=== PATIENT | male | born 1950 | race Caucasian/White ===

== ENCOUNTER 2019-01-12 15:18 | Observation (INO) ==
[2019-01-12] MEDS ORDERED: Morphine Sulfate Immed Rel 15 MG TABLET PO STA ×2 (15:59→19:26)
[2019-01-12] MEDS ORDERED: Gadolinium Contrast Agent (WT Based) IV PRN (16:00)
[2019-01-12 16:27] LABS: Basophils # 0.1 K/mcL (0.0-0.2); Eosinophils # 0.3 K/mcL (0.0-0.6); Eosinophils % 3.5 %; Hematocrit 39.2 % (37.5-50.1); Hemoglobin 13.4 g/dL (12.9-16.9); Immature Granulocytes % 1.5 % (0-4); Lymphocytes # 1.6 K/mcL (0.6-4.6); Lymphocytes % 22.3 %; Mean Corpuscular HGB Conc 34.2 g/dL (31.6-35.5); Mean Corpuscular Hemoglobin 31.8 pg (28.0-33.3); Mean Corpuscular Volume 92.9 fL (83.0-100.0); Mean Platelet Volume 8.6 fL (9.4-12.4); Monocytes # 0.7 K/mcL (0.0-1.3); Monocytes % 9.6 %; Neutrophils # 4.5 K/mcL (1.6-8.9); Platelet Count 267 K/mcL (140-400); Red Blood Count 4.22 M/mcL (4.19-5.50); Red Cell Distribution Width 12.5 % (11.5-14.5); Segmented Neutrophils % 62.1 %; White Blood Count 7.2 K/mcL (4.3-11.1)
[2019-01-12 16:56] LABS: BUN/Creatinine Ratio 36 (6-26); Blood Urea Nitrogen 32 mg/dL (8-23); C-Reactive Protein < 5 mg/L (Less than 10); Calcium 10.4 mg/dL (8.6-10.3); Carbon Dioxide 25 mEq/L (23-29); Chloride 98 mEq/L (98-107); Glucose 162 mg/dL (70-105); Osmolality,Calculated 292 (280-300); Potassium 3.8 mEq/L (3.5-5.1); Sodium 136 mEq/L (136-145); eGFR For African Americans > 60 (> 60); eGFR For Non-African Americans > 60 (> 60)
[2019-01-12] MEDS ORDERED: Ketorolac 30 MG/ML VIAL IVP ONE (20:05)
[2019-01-12] MEDS ORDERED: *HR* FentaNYL (PF) 100 MCG/2 ML VIAL IVP ONE (20:31)
[2019-01-12] MEDS: Gabapentin 300 MG CAPSULE PO SCH (21:10)
[2019-01-12] MEDS ORDERED: traMADol 50 MG TABLET PO PRN (22:18)
[2019-01-12] MEDS ORDERED: Ondansetron 4 MG/2 ML VIAL IVP PRN (22:18)
[2019-01-12] MEDS ORDERED: Naloxone 0.4 MG/ML INJ IVP PRN (22:18)
[2019-01-12] MEDS ORDERED: D5% in Water 1,000 ML IVC PRN (22:21)
[2019-01-12] MEDS ORDERED: Dextrose Gel 15 GM/37.5 ML TUBE PO PRN ×2 (22:21)
[2019-01-12] MEDS ORDERED: *HR* Dextrose 50 % in Water (Syg) 50 ML SYRINGE IVP PRN (22:21)
[2019-01-12] MEDS ORDERED: tiZANidine 4 MG TABLET PO PRN (22:22)
[2019-01-12] MEDS ORDERED: *HR* HYDROmorphone 2 MG TABLET PO PRN (22:28)
[2019-01-12] MEDS: Insulin LISPRO 300 UNITS/3 ML VIAL SQ SCH (22:48)
[2019-01-12] MEDS: *HR* OxyCODONE Immed Rel 5 MG TABLET PO PRN (23:45)
[2019-01-13] MEDS: Acetaminophen 325 MG TABLET PO PRN (02:55)
[2019-01-13 03:04] LABS: Hematocrit 37.2 % (37.5-50.1); Hemoglobin 12.4 g/dL (12.9-16.9); Mean Corpuscular HGB Conc 33.3 g/dL (31.6-35.5); Mean Corpuscular Volume 96.1 fL (83.0-100.0); Mean Platelet Volume 8.7 fL (9.4-12.4); Platelet Count 238 K/mcL (140-400); Red Blood Count 3.87 M/mcL (4.19-5.50); Red Cell Distribution Width 12.4 % (11.5-14.5); White Blood Count 7.1 K/mcL (4.3-11.1)
[2019-01-13 03:25] LABS: BUN/Creatinine Ratio 31 (6-26); Blood Urea Nitrogen 29 mg/dL (8-23); Calcium 9.4 mg/dL (8.6-10.3); Carbon Dioxide 25 mEq/L (23-29); Chloride 100 mEq/L (98-107); Chol/HDL Ratio 3.2 (0-4.9); Cholesterol 142 mg/dL (< 200); Glucose 151 mg/dL (70-105); HDL Cholesterol 44 mg/dL (40-59); LDL Cholesterol,Calculated 78 mg/dL (0-99); Magnesium 1.8 mg/dL (1.6-2.6); Osmolality,Calculated 289 (280-300); Potassium 3.9 mEq/L (3.5-5.1); Sodium 135 mEq/L (136-145); Triglycerides 98 mg/dL (< 150); eGFR For African Americans > 60 (> 60); eGFR For Non-African Americans > 60 (> 60)
[2019-01-13] MEDS: *HR* Heparin 5,000 UNIT/ML VIAL SQ SCH ×3 (05:50→20:11)
[2019-01-13] MEDS: Insulin LISPRO 300 UNITS/3 ML VIAL SQ SCH ×4 (08:26→19:38)
[2019-01-13] MEDS: Aspirin Enteric Coated 81 MG Tablet PO SCH (08:26)
[2019-01-13] MEDS: Gabapentin 300 MG CAPSULE PO SCH ×3 (08:27→20:10)
[2019-01-13] MEDS: Linaclotide [Linzess] 72 MCG PO SCH (08:27)
[2019-01-13] MEDS: *HR* OxyCODONE Immed Rel 5 MG TABLET PO PRN ×3 (08:27→17:26)
[2019-01-13 09:24] LABS: Estimated Average Glucose 160 mg/dl
[2019-01-14] MEDS: *HR* OxyCODONE Immed Rel 5 MG TABLET PO PRN ×4 (00:41→21:22)
[2019-01-14 04:41] LABS: Hemoglobin 12.6 g/dL (12.9-16.9); Mean Corpuscular HGB Conc 33.2 g/dL (31.6-35.5); Mean Corpuscular Hemoglobin 32.3 pg (28.0-33.3); Mean Corpuscular Volume 97.4 fL (83.0-100.0); Mean Platelet Volume 8.7 fL (9.4-12.4); Platelet Count 227 K/mcL (140-400); Red Cell Distribution Width 12.3 % (11.5-14.5); White Blood Count 5.5 K/mcL (4.3-11.1)
[2019-01-14 04:57] LABS: BUN/Creatinine Ratio 26 (6-26); Blood Urea Nitrogen 20 mg/dL (8-23); Calcium 9.5 mg/dL (8.6-10.3); Carbon Dioxide 28 mEq/L (23-29); Chloride 102 mEq/L (98-107); Glucose 127 mg/dL (70-105); Osmolality,Calculated 286 (280-300); Potassium 4.3 mEq/L (3.5-5.1); Sodium 136 mEq/L (136-145); eGFR For African Americans > 60 (> 60); eGFR For Non-African Americans > 60 (> 60)
[2019-01-14] MEDS: *HR* Heparin 5,000 UNIT/ML VIAL SQ SCH ×3 (05:48→21:23)
[2019-01-14] MEDS: Insulin LISPRO 300 UNITS/3 ML VIAL SQ SCH ×4 (07:51→21:19)
[2019-01-14] MEDS: Gabapentin 300 MG CAPSULE PO SCH ×3 (09:11→21:23)
[2019-01-14] MEDS: Aspirin Enteric Coated 81 MG Tablet PO SCH (09:12)
[2019-01-14] MEDS: Linaclotide [Linzess] 72 MCG PO SCH (09:15)
[2019-01-14] MEDS: Acetaminophen 325 MG TABLET PO PRN ×2 (12:27→23:47)
[2019-01-15 04:00] LABS: Hematocrit 37.8 % (37.5-50.1); Hemoglobin 12.8 g/dL (12.9-16.9); Mean Corpuscular HGB Conc 33.9 g/dL (31.6-35.5); Mean Corpuscular Hemoglobin 32.2 pg (28.0-33.3); Mean Platelet Volume 8.7 fL (9.4-12.4); Platelet Count 218 K/mcL (140-400); Red Blood Count 3.98 M/mcL (4.19-5.50); Red Cell Distribution Width 12.2 % (11.5-14.5); White Blood Count 5.7 K/mcL (4.3-11.1)
[2019-01-15 04:17] LABS: BUN/Creatinine Ratio 26 (6-26); Blood Urea Nitrogen 21 mg/dL (8-23); Carbon Dioxide 28 mEq/L (23-29); Chloride 99 mEq/L (98-107); Glucose 133 mg/dL (70-105); Osmolality,Calculated 287 (280-300); Potassium 3.9 mEq/L (3.5-5.1); Sodium 136 mEq/L (136-145); eGFR For African Americans > 60 (> 60); eGFR For Non-African Americans > 60 (> 60)
[2019-01-15] MEDS: *HR* OxyCODONE Immed Rel 5 MG TABLET PO PRN ×2 (06:11→14:45)
[2019-01-15] MEDS: *HR* Heparin 5,000 UNIT/ML VIAL SQ SCH ×2 (06:11→13:45)
[2019-01-15] MEDS: Insulin LISPRO 300 UNITS/3 ML VIAL SQ SCH ×2 (07:35→11:48)
[2019-01-15] MEDS: Gabapentin 300 MG CAPSULE PO SCH ×2 (07:36→13:45)
[2019-01-15] MEDS: Aspirin Enteric Coated 81 MG Tablet PO SCH (07:37)
[2019-01-15] MEDS: Linaclotide [Linzess] 72 MCG PO SCH (07:38)
[2019-01-15 11:52] VITALS: BP 127/78
[2019-01-15] MEDS: Acetaminophen 325 MG TABLET PO PRN (13:44)
== END 2019-01-15 15:36 | disposition home health service (06) ==
LOC: EMEROOARM 15:18 → 3BNU 15:18 → SUATTDRO 21:20 → 3BNU 21:58
PROVIDERS: ADMIT Internal Medicine; ATTEND Family Medicine

== ENCOUNTER 2019-01-22 11:09 | Observation (INO) ==
[2019-01-22] MEDS ORDERED: Ondansetron 4 MG/2 ML VIAL IVP ONE (12:23)
[2019-01-22] MEDS ORDERED: *HR* FentaNYL (PF) 100 MCG/2 ML VIAL IVP ONE (12:23)
[2019-01-22 13:22] LABS: Bilirubin,Urine Negative (Negative); Blood,Urine Negative (Negative); Clarity,Urine Clear (Clear); Color,Urine Yellow (Yellow); Glucose,Urine (UA) Normal (Normal); Ketones,Urine Negative (Negative); Leukocyte Esterase,Urine Negative (Negative); Nitrite,Urine Negative (Negative); Protein,Urine Negative (Neg-Trace); Specific Gravity,Urine > 1.030 (1.010-1.025); Urobilinogen,Urine Normal (Normal)
[2019-01-22 14:23] LABS: Hematocrit 37.4 % (37.5-50.1); Hemoglobin 12.9 g/dL (12.9-16.9); Mean Corpuscular HGB Conc 34.5 g/dL (31.6-35.5); Mean Corpuscular Hemoglobin 31.9 pg (28.0-33.3); Mean Corpuscular Volume 92.3 fL (83.0-100.0); Mean Platelet Volume 8.8 fL (9.4-12.4); Platelet Count 231 K/mcL (140-400); Red Blood Count 4.05 M/mcL (4.19-5.50); Red Cell Distribution Width 12.2 % (11.5-14.5); White Blood Count 5.2 K/mcL (4.3-11.1)
[2019-01-22 15:05] LABS: Alanine Aminotransferase 18 Units/L (7-52); Albumin 4.2 g/dL (3.5-5.7); Albumin/Globulin Ratio 1.4 (1.1-2.2); Alkaline Phosphatase 123 Units/L (34-104); Aspartate Amino Transferase 20 Units/L (13-39); BUN/Creatinine Ratio 31 (6-26); Bilirubin,Direct 0.1 mg/dL (0.0-0.2); Bilirubin,Indirect 0.2 mg/dL (0.0-1.2); Bilirubin,Total 0.3 mg/dL (0.3-1.0); Blood Urea Nitrogen 27 mg/dL (8-23); Carbon Dioxide 24 mEq/L (23-29); Chloride 100 mEq/L (98-107); Glucose 101 mg/dL (70-105); Lipase 42 Units/L (11-82); Osmolality,Calculated 285 (280-300); Potassium 4.7 mEq/L (3.5-5.1); Sodium 135 mEq/L (136-145); Total Protein 7.2 g/dL (6.4-8.9); eGFR For African Americans > 60 (> 60); eGFR For Non-African Americans > 60 (> 60)
[2019-01-22] MEDS ORDERED: Naloxone 0.4 MG/ML INJ IVP PRN (15:45)
[2019-01-22] MEDS ORDERED: D5% in Water 1,000 ML IVC PRN (16:05)
[2019-01-22] MEDS ORDERED: Dextrose Gel 15 GM/37.5 ML TUBE PO PRN ×2 (16:05)
[2019-01-22] MEDS ORDERED: *HR* Dextrose 50 % in Water (Syg) 50 ML SYRINGE IVP PRN (16:05)
[2019-01-22] MEDS: Insulin LISPRO 300 UNITS/3 ML VIAL SQ SCH (17:47)
[2019-01-22] MEDS: *HR* Heparin 5,000 UNIT/ML VIAL SQ SCH (17:48)
[2019-01-22] MEDS: Morphine PCA 30 MG/ 30 ML 30 ML PCA.VIAL IVC PRN (17:54)
[2019-01-22] MEDS ORDERED: 0.9 % Sodium Chloride 1,000 ML ONE (18:06)
[2019-01-22] MEDS: 0.9 % Sodium Chloride 1,000 ML IVC SCH (20:14)
[2019-01-23 05:21] LABS: White Blood Count 4.4 K/mcL (4.3-11.1)
[2019-01-23 05:22] LABS: Basophils % 0.7 %; Eosinophils # 0.2 K/mcL (0.0-0.6); Eosinophils % 4.8 %; Hematocrit 37.7 % (37.5-50.1); Hemoglobin 13.1 g/dL (12.9-16.9); Immature Granulocytes % 0.9 % (0-4); Lymphocytes # 1.4 K/mcL (0.6-4.6); Lymphocytes % 31.1 %; Mean Corpuscular HGB Conc 34.7 g/dL (31.6-35.5); Mean Corpuscular Hemoglobin 32.3 pg (28.0-33.3); Mean Corpuscular Volume 92.9 fL (83.0-100.0); Mean Platelet Volume 8.7 fL (9.4-12.4); Monocytes # 0.6 K/mcL (0.0-1.3); Monocytes % 12.9 %; Neutrophils # 2.2 K/mcL (1.6-8.9); Platelet Count 228 K/mcL (140-400); Red Blood Count 4.06 M/mcL (4.19-5.50); Red Cell Distribution Width 12.4 % (11.5-14.5); Segmented Neutrophils % 49.6 %
[2019-01-23 05:39] LABS: BUN/Creatinine Ratio 29 (6-26); Blood Urea Nitrogen 24 mg/dL (8-23); Carbon Dioxide 29 mEq/L (23-29); Chloride 98 mEq/L (98-107); Glucose 117 mg/dL (70-105); Osmolality,Calculated 285 (280-300); Potassium 3.9 mEq/L (3.5-5.1); Sodium 135 mEq/L (136-145); eGFR For African Americans > 60 (> 60); eGFR For Non-African Americans > 60 (> 60)
[2019-01-23] MEDS: *HR* Heparin 5,000 UNIT/ML VIAL SQ SCH ×2 (06:00→17:17)
[2019-01-23] MEDS: Morphine PCA 30 MG/ 30 ML 30 ML PCA.VIAL IVC PRN ×2 (06:06→18:39)
[2019-01-23] MEDS: Insulin LISPRO 300 UNITS/3 ML VIAL SQ SCH ×3 (09:20→17:17)
[2019-01-23] MEDS ORDERED: *HR* LORazepam 0.5 MG TABLET PO PRN (10:42)
[2019-01-23] MEDS: Acetaminophen 325 MG TABLET PO PRN (17:18)
[2019-01-24] MEDS: *HR* Heparin 5,000 UNIT/ML VIAL SQ SCH ×2 (05:58→17:44)
[2019-01-24] MEDS: Insulin LISPRO 300 UNITS/3 ML VIAL SQ SCH ×3 (08:49→17:12)
[2019-01-24] MEDS: Aspirin Enteric Coated 81 MG Tablet PO SCH (08:56)
[2019-01-24] MEDS: *HR* OxyCODONE Immed Rel 5 MG TABLET PO PRN ×3 (13:13→22:49)
[2019-01-24] MEDS: 0.9 % Sodium Chloride 1,000 ML IVC SCH (18:50)
[2019-01-25] MEDS: Acetaminophen 325 MG TABLET PO PRN (02:19)
[2019-01-25 05:16] LABS: Basophils % 0.5 %; Eosinophils # 0.2 K/mcL (0.0-0.6); Eosinophils % 3.5 %; Hematocrit 37.3 % (37.5-50.1); Hemoglobin 13.2 g/dL (12.9-16.9); Immature Granulocytes % 0.6 % (0-4); Lymphocytes # 1.6 K/mcL (0.6-4.6); Lymphocytes % 24.3 %; Mean Corpuscular HGB Conc 35.4 g/dL (31.6-35.5); Mean Corpuscular Volume 90.5 fL (83.0-100.0); Mean Platelet Volume 8.8 fL (9.4-12.4); Monocytes # 0.8 K/mcL (0.0-1.3); Monocytes % 11.6 %; Neutrophils # 3.9 K/mcL (1.6-8.9); Platelet Count 227 K/mcL (140-400); Red Blood Count 4.12 M/mcL (4.19-5.50); Red Cell Distribution Width 12.3 % (11.5-14.5); Segmented Neutrophils % 59.5 %; White Blood Count 6.6 K/mcL (4.3-11.1)
[2019-01-25 05:36] LABS: BUN/Creatinine Ratio 25 (6-26); Blood Urea Nitrogen 21 mg/dL (8-23); Carbon Dioxide 24 mEq/L (23-29); Chloride 100 mEq/L (98-107); Glucose 124 mg/dL (70-105); Osmolality,Calculated 282 (280-300); Potassium 3.8 mEq/L (3.5-5.1); Sodium 134 mEq/L (136-145); eGFR For African Americans > 60 (> 60); eGFR For Non-African Americans > 60 (> 60)
[2019-01-25] MEDS: *HR* Heparin 5,000 UNIT/ML VIAL SQ SCH (06:51)
[2019-01-25] MEDS: Aspirin Enteric Coated 81 MG Tablet PO SCH (08:56)
[2019-01-25] MEDS: Insulin LISPRO 300 UNITS/3 ML VIAL SQ SCH (08:56)
[2019-01-25] MEDS: *HR* OxyCODONE Immed Rel 5 MG TABLET PO PRN (08:56)
[2019-01-25 10:27] VITALS: BP 130/72
== END 2019-01-25 10:55 | disposition home or self-care (01) ==
LOC: EMEROOARM 11:09 → 3NENU 11:09 → SUATTDRO 15:18 → 3NENU 16:13
PROVIDERS: ADMIT Internal Medicine; ATTEND Internal Medicine

== ENCOUNTER 2019-10-13 17:00 | Observation (INO) ==
[2019-10-13 22:08] LABS: Basophils # 0.1 K/mcL (0.0-0.2); Eosinophils # 0.3 K/mcL (0.0-0.6); Eosinophils % 3.9 %; Hematocrit 38.8 % (37.5-50.1); Hemoglobin 12.7 g/dL (12.9-16.9); Immature Granulocytes % 1.2 % (0-4); Lymphocytes # 1.9 K/mcL (0.6-4.6); Lymphocytes % 27.3 %; Mean Corpuscular HGB Conc 32.7 g/dL (31.6-35.5); Mean Corpuscular Hemoglobin 31.8 pg (28.0-33.3); Mean Platelet Volume 8.5 fL (9.4-12.4); Monocytes % 14.9 %; Neutrophils # 3.6 K/mcL (1.6-8.9); Platelet Count 297 K/mcL (140-400); Red Cell Distribution Width 12.5 % (11.5-14.5); Segmented Neutrophils % 51.7 %; White Blood Count 6.9 K/mcL (4.3-11.1)
[2019-10-13 22:25] LABS: BUN/Creatinine Ratio 21 (6-26); Blood Urea Nitrogen 17 mg/dL (8-23); Calcium 10.4 mg/dL (8.6-10.3); Carbon Dioxide 30 mEq/L (23-29); Chloride 99 mEq/L (98-107); Glucose 72 mg/dL (70-105); Osmolality,Calculated 282 (280-300); Sodium 136 mEq/L (136-145); eGFR For African Americans > 60 (> 60); eGFR For Non-African Americans > 60 (> 60)
[2019-10-13] MEDS ORDERED: *HR* HYDROmorphone (PF) 1 MG/ML SYRINGE IVP ONE (22:29)
[2019-10-13] MEDS ORDERED: lisinopriL 5 MG TABLET PO ONE (22:45)
[2019-10-13] MEDS ORDERED: Naloxone 0.4 MG/ML INJ IVP PRN (23:59)
[2019-10-14] MEDS ORDERED: 0.9 % Sodium Chloride 1,000 ML ONE ×2 (00:44→21:08)
[2019-10-14] MEDS: Morphine PCA 30 MG/ 30 ML 30 ML PCA.VIAL IVC PRN ×2 (00:52→15:03)
[2019-10-14] MEDS ORDERED: Naloxone 0.4 MG/ML INJ IVP PRN (04:30)
[2019-10-14] MEDS ORDERED: D5% in Water 1,000 ML IVC PRN (04:41)
[2019-10-14] MEDS ORDERED: *HR* Dextrose 50 % in Water (Vial) 50 ML VIAL IVP PRN (04:41)
[2019-10-14] MEDS ORDERED: Dextrose Gel 15 GM/37.5 ML TUBE PO PRN ×2 (04:41)
[2019-10-14] MEDS: *HR* Heparin 5,000 UNIT/ML VIAL SQ SCH ×2 (05:16→17:39)
[2019-10-14 06:01] LABS: Hematocrit 36.5 % (37.5-50.1); Hemoglobin 12.4 g/dL (12.9-16.9); Mean Corpuscular Volume 97.1 fL (83.0-100.0); Mean Platelet Volume 8.4 fL (9.4-12.4); Platelet Count 276 K/mcL (140-400); Red Blood Count 3.76 M/mcL (4.19-5.50); Red Cell Distribution Width 12.6 % (11.5-14.5); White Blood Count 6.1 K/mcL (4.3-11.1)
[2019-10-14 06:11] LABS: Magnesium 1.9 mg/dL (1.6-2.6); Phosphorous 3.2 mg/dL (2.7-4.5)
[2019-10-14 06:14] LABS: BUN/Creatinine Ratio 18 (6-26); Blood Urea Nitrogen 18 mg/dL (8-23); Calcium 9.9 mg/dL (8.6-10.3); Carbon Dioxide 32 mEq/L (23-29); Chloride 99 mEq/L (98-107); Glucose 118 mg/dL (70-105); Osmolality,Calculated 287 (280-300); Potassium 4.2 mEq/L (3.5-5.1); Sodium 137 mEq/L (136-145); eGFR For African Americans > 60 (> 60); eGFR For Non-African Americans > 60 (> 60)
[2019-10-14] MEDS: Insulin LISPRO 300 UNITS/3 ML VIAL SQ SCH ×4 (08:40→20:27)
[2019-10-14] MEDS ORDERED: tiZANidine 4 MG TABLET PO PRN (08:53)
[2019-10-14] MEDS: lisinopriL 5 MG TABLET PO SCH ×2 (10:57→20:28)
[2019-10-14] MEDS: Aspirin Enteric Coated 81 MG Tablet PO SCH (10:57)
[2019-10-14] MEDS: Pregabalin 75 MG CAPSULE PO SCH ×3 (10:57→20:27)
[2019-10-14] MEDS: gemfibroziL 600 MG TABLET PO SCH ×2 (11:00→17:39)
[2019-10-15] MEDS: Morphine PCA 30 MG/ 30 ML 30 ML PCA.VIAL IVC PRN (04:30)
[2019-10-15] MEDS: *HR* Heparin 5,000 UNIT/ML VIAL SQ SCH ×2 (04:49→18:01)
[2019-10-15] MEDS: Insulin LISPRO 300 UNITS/3 ML VIAL SQ SCH ×4 (09:13→20:50)
[2019-10-15] MEDS: Ascorbic Acid 500 MG TABLET PO SCH (09:14)
[2019-10-15] MEDS: lisinopriL 5 MG TABLET PO SCH ×2 (09:14→20:01)
[2019-10-15] MEDS: Celecoxib 200 MG CAPSULE PO SCH (09:14)
[2019-10-15] MEDS: Cyanocobalamin (B-12) 1,000 MCG TABLET PO SCH (09:14)
[2019-10-15] MEDS: Cholecalciferol (D-3) 1,000 UNIT (25MCG) TABLET PO SCH (09:14)
[2019-10-15] MEDS: Pregabalin 75 MG CAPSULE PO SCH ×3 (09:14→20:01)
[2019-10-15] MEDS: gemfibroziL 600 MG TABLET PO SCH ×2 (09:14→18:01)
[2019-10-15] MEDS: Aspirin Enteric Coated 81 MG Tablet PO SCH (09:14)
[2019-10-15] MEDS: *HR* OxyCODONE Immed Rel 15 MG TABLET PO PRN ×2 (14:26→20:02)
[2019-10-16] MEDS: *HR* Heparin 5,000 UNIT/ML VIAL SQ SCH (05:01)
[2019-10-16] MEDS: *HR* OxyCODONE Immed Rel 15 MG TABLET PO PRN ×2 (05:01→10:34)
[2019-10-16] MEDS: Cyanocobalamin (B-12) 1,000 MCG TABLET PO SCH (10:33)
[2019-10-16] MEDS: Ascorbic Acid 500 MG TABLET PO SCH (10:33)
[2019-10-16] MEDS: Cholecalciferol (D-3) 1,000 UNIT (25MCG) TABLET PO SCH (10:33)
[2019-10-16] MEDS: Pregabalin 75 MG CAPSULE PO SCH (10:34)
[2019-10-16] MEDS: gemfibroziL 600 MG TABLET PO SCH (10:34)
[2019-10-16] MEDS: Celecoxib 200 MG CAPSULE PO SCH (10:34)
[2019-10-16] MEDS: Aspirin Enteric Coated 81 MG Tablet PO SCH (10:34)
[2019-10-16 11:24] VITALS: BP 134/88
== END 2019-10-16 13:20 | disposition home or self-care (01) ==
LOC: EMEROOARM 17:00 → 3BNU 17:00 → SUATTDRO 22:50 → 3BNU 23:39
PROVIDERS: ADMIT Family Medicine; ATTEND Internal Medicine

== ENCOUNTER 2020-08-03 16:01 | Observation (INO) ==
[2020-08-03] MEDS ORDERED: Morphine Sulfate 2 MG/ML SYRINGE IVP ONE (18:11)
[2020-08-04] MEDS ORDERED: Morphine Sulfate 2 MG/ML SYRINGE IVP ONE (04:00)
[2020-08-04] MEDS ORDERED: lisinopriL 5 MG TABLET PO ONE (04:01)
[2020-08-04] MEDS ORDERED: Naloxone 0.4 MG/ML INJ IVP PRN (04:14)
[2020-08-04] MEDS ORDERED: D5% in Water 1,000 ML IVC PRN (04:14)
[2020-08-04] MEDS ORDERED: *HR* Dextrose 50 % in Water (Vial) 50 ML VIAL IVP PRN (04:14)
[2020-08-04] MEDS ORDERED: Dextrose Gel 15 GM/37.5 ML TUBE PO PRN ×2 (04:14)
[2020-08-04] MEDS ORDERED: Melatonin 3 MG TABLET PO PRN (04:14)
[2020-08-04] MEDS ORDERED: *HR* HYDROmorphone (PF) 1 MG/ML SYRINGE IVP PRN (04:15)
[2020-08-04] MEDS: *HR* Heparin 5,000 UNIT/ML VIAL SQ SCH ×2 (05:37→13:18)
[2020-08-04] MEDS: Insulin LISPRO 300 UNITS/3 ML VIAL SUBQ SCH ×2 (07:45→11:18)
[2020-08-04] MEDS: Morphine Sulfate 2 MG/ML SYRINGE IVP PRN ×3 (08:02→17:38)
[2020-08-04 10:12] LABS: Basophils % 0.6 %; Eosinophils # 0.3 K/mcL (0.0-0.6); Eosinophils % 4.2 %; Hematocrit 35.5 % (37.5-50.1); Hemoglobin 11.3 g/dL (12.9-16.9); Immature Granulocytes % 0.8 % (0-4); Lymphocytes # 2.1 K/mcL (0.6-4.6); Lymphocytes % 32.2 %; Mean Corpuscular HGB Conc 31.8 g/dL (31.6-35.5); Mean Corpuscular Hemoglobin 29.1 pg (28.0-33.3); Mean Corpuscular Volume 91.5 fL (83.0-100.0); Mean Platelet Volume 8.6 fL (9.4-12.4); Monocytes # 0.7 K/mcL (0.0-1.3); Monocytes % 10.8 %; Neutrophils # 3.3 K/mcL (1.6-8.9); Platelet Count 298 K/mcL (140-400); Red Blood Count 3.88 M/mcL (4.19-5.50); Red Cell Distribution Width 14.8 % (11.5-14.5); Segmented Neutrophils % 51.4 %; White Blood Count 6.4 K/mcL (4.3-11.1)
[2020-08-04 10:23] LABS: BUN/Creatinine Ratio 28 (6-26); Blood Urea Nitrogen 21 mg/dL (8-23); Calcium 9.8 mg/dL (8.6-10.3); Carbon Dioxide 27 mEq/L (23-29); Chloride 99 mEq/L (98-107); Glucose 108 mg/dL (70-105); Magnesium 1.9 mg/dL (1.6-2.6); Osmolality,Calculated 278 (280-300); Phosphorous 2.8 mg/dL (2.7-4.5); Sodium 132 mEq/L (136-145); eGFR For African Americans > 60 (> 60); eGFR For Non-African Americans > 60 (> 60)
[2020-08-04] MEDS ORDERED: tiZANidine 4 MG TABLET PO PRN (16:42)
[2020-08-04] MEDS ORDERED: Celecoxib 200 MG CAPSULE PO SCH (16:45)
[2020-08-04] MEDS ORDERED: Gabapentin 400 MG CAPSULE PO SCH (17:00)
[2020-08-04 20:55] VITALS: BP 160/81
[2020-08-04] MEDS ORDERED: gemfibroziL 600 MG TABLET PO SCH (21:00)
[2020-08-04] MEDS ORDERED: traZODone 50 MG TABLET PO SCH (21:00)
[2020-08-04] MEDS ORDERED: lisinopriL 5 MG TABLET PO SCH (21:00)
[2020-08-05] MEDS ORDERED: Aspirin Enteric Coated 81 MG Tablet PO SCH (09:00)
== END 2020-08-04 18:13 | disposition other institution (70) ==
LOC: 3BNU 16:01 → EMEROOARM 16:01 → SUATTDRO 08-04 04:31 → 3BNU 08-04 05:10
PROVIDERS: ADMIT Family Medicine; ATTEND Internal Medicine